=== PATIENT | female | born 1995 | race Caucasian/White ===

== ENCOUNTER 2021-07-26 12:19 | Emergency (ER) | payer BC ==
[~2021-07-26] VITALS: Ht 167.6 cm; Wt 75.0 kg
[2021-07-26 12:35] VITALS: BP 116/66
[2021-07-26] MEDS ORDERED: FLUC200T PO (12:59)
[2021-07-26] MEDS ORDERED: CIPR-202 PO (12:59)
[2021-07-26 13:02] LABS: URINE HCG NEGATIVE (NEG)
[2021-07-26 13:22] LABS: CLARITY,URINE CLOUDY (Clear); COLOR,URINE YELLOW (Yellow); GLUCOSE, URINE NEGATIVE (Neg); KETONES,URINE NEGATIVE (Neg); LEUKOCYTE ESTERASE ,URINE NEGATIVE (Neg); NITRITES, URINE NEGATIVE (Neg); OCCULT BLOOD,URINE SMALL (Neg); PH,URINE 7.5 (4.8-8.0); PROTEIN,URINE NEGATIVE (Neg); UROBILINOGEN,URINE 0.2 E.U/dL (0.2-1.0)
[2021-07-26 13:23] LABS: UA COLLECTION TYPE CLN CATCH MIDSTREAM
[2021-07-26 13:28] LABS: MUCUS STRANDS MANY /LPF (Neg); SQUAMOUS EPITHELIAL CELL,UR MANY /LPF (FEW)
[2021-07-26 13:30] LABS: BACTERIA,URINE 2+ /HPF (Neg); WBC,URINE 0-4 /HPF (0-4)
[2021-07-26 13:31] LABS: YEAST MODERATE /HPF (NEGATIVE)
== END 2021-07-26 13:11 | disposition home or self-care (01) ==
LOC: EEVIPCON 12:20 → ER 12:20
DX: H66.93 Otitis media, unspecified, bilateral (principal); R30.0 Dysuria; Z79.2 Long term (current) use of antibiotics
CPT/HCPCS: 81001; 81025; 99283

== ENCOUNTER 2021-08-16 09:32 | Emergency (ER) | payer BC ==
[~2021-08-16] VITALS: Ht 167.6 cm; Wt 75.0 kg
[~2021-08-16 09:32] MED LIST: CIPR-202 PO; FLUC200T PO
[2021-08-16 09:41] VITALS: BP 138/90
--- NOTE | 2021-08-16 10:05 | NUR ---
I AGREE WITH ALL DOCUMENTATION INCLUDING ASSESSMENTS DONE BY MIS LO FOR PATIENT.
[2021-08-16] MEDS ORDERED: MUPI22OI30 TOP (11:27)
[2021-08-17] MEDS ORDERED: AMOX-117 PO (15:20)
== END 2021-08-16 11:40 | disposition home or self-care (01) ==
LOC: EEVIPCON 09:33 → ER 09:33
DX: T65.891A Toxic effect of other specified substances, accidental (unintentional), initial encounter (principal); T20.53XA Corrosion of first degree of chin, initial encounter; R22.0 Localized swelling, mass and lump, head; Z79.2 Long term (current) use of antibiotics; Z79.899 Other long term (current) drug therapy; Y93.89 Activity, other specified; Y92.89 Other specified places as the place of occurrence of the external cause; Y99.8 Other external cause status
CPT/HCPCS: 99283

== ENCOUNTER 2021-08-17 14:44 | Emergency (ER) | payer BC ==
[~2021-08-17] VITALS: Ht 167.6 cm; Wt 80.0 kg
[~2021-08-17 14:44] MED LIST changes: +MUPI22OI30 TOP
[2021-08-17 14:50] VITALS: BP 141/94
[2021-08-17] MEDS ORDERED: AMOX-117 PO (15:20)
== END 2021-08-17 15:45 | disposition home or self-care (01) ==
LOC: EEVIPCON 14:44 → ER 14:44
DX: L03.211 Cellulitis of face (principal); Z79.2 Long term (current) use of antibiotics; Z79.899 Other long term (current) drug therapy
CPT/HCPCS: 99283

== ENCOUNTER 2021-08-23 15:01 | Emergency (ER) | payer BC ==
[~2021-08-23] VITALS: Ht 167.6 cm; Wt 75.0 kg
[~2021-08-23 15:01] MED LIST changes: +AMOX-117 PO; -MUPI22OI30 TOP
[2021-08-23 15:04] VITALS: BP 150/64
[2021-08-23] MEDS ORDERED: METH4TAB3 PO (16:34)
[2021-08-23] MEDS ORDERED: FAMO20TA8 PO (16:34)
== END 2021-08-23 16:54 | disposition home or self-care (01) ==
LOC: ER 15:02 → EEVIPCON 15:02 → ER 16:54
DX: L03.211 Cellulitis of face (principal); Z79.2 Long term (current) use of antibiotics; Z79.899 Other long term (current) drug therapy
CPT/HCPCS: 99283

== ENCOUNTER 2021-12-12 23:50 | Emergency (ER) | payer BC ==
[~2021-12-12] VITALS: Ht 167.6 cm; Wt 75.0 kg
[~2021-12-12 23:50] MED LIST changes: -AMOX-117 PO; -CIPR-202 PO; +FAMO20TA8 PO; +METH4TAB3 PO
[2021-12-12 23:54] VITALS: BP 148/96
== END 2021-12-13 02:50 | disposition home or self-care (01) ==
LOC: ER 23:51
DX: H10.212 Acute toxic conjunctivitis, left eye (principal); Z79.899 Other long term (current) drug therapy
CPT/HCPCS: 99282

== ENCOUNTER 2022-01-16 14:25 | Emergency (ER) | payer BC ==
[~2022-01-16] VITALS: Ht 167.6 cm; Wt 73.8 kg
[2022-01-16 14:38] VITALS: BP 128/79
[2022-01-16] MEDS ORDERED: PRED10TA PO (15:58)
[2022-01-16] MEDS ORDERED: TRIA15CR61 TOP (15:58)
== END 2022-01-16 16:08 | disposition home or self-care (01) ==
LOC: ER 14:26 → EEVIPCON 14:26 → ER 16:08
DX: L30.1 Dyshidrosis [pompholyx] (principal); Z79.899 Other long term (current) drug therapy
CPT/HCPCS: 99283

== ENCOUNTER 2022-02-19 19:11 | Emergency (ER) | payer BC ==
[~2022-02-19 19:11] MED LIST changes: +PRED10TA PO
[2022-02-20] MEDS ORDERED: CEPH500C81 PO (11:24)
== END 2022-02-19 22:10 | disposition left against medical advice (07) ==
LOC: ER 19:12
DX: R10.9 Unspecified abdominal pain (principal); Z53.21 Procedure and treatment not carried out due to patient leaving prior to being seen by health care provider

== ENCOUNTER 2022-02-20 08:21 | Emergency (ER) | payer BC ==
[~2022-02-20] VITALS: Ht 167.6 cm; Wt 74.6 kg
[2022-02-20 09:11] VITALS: BP 140/94
[2022-02-20 09:49] LABS: URINE HCG NEGATIVE (NEG)
[2022-02-20 10:01] LABS: CLARITY,URINE SLIGHTLY CLOUDY (Clear); COLOR,URINE YELLOW (Yellow); GLUCOSE, URINE NEGATIVE (Neg); KETONES,URINE TRACE mg/dl (Neg); LEUKOCYTE ESTERASE ,URINE NEGATIVE (Neg); OCCULT BLOOD,URINE MODERATE (Neg); PROTEIN,URINE NEGATIVE (Neg); UROBILINOGEN,URINE 0.2 E.U/dL (0.2-1.0)
[2022-02-20 10:07] LABS: UA COLLECTION TYPE CLN CATCH MIDSTREAM
[2022-02-20 10:08] LABS: NITRITES, URINE NEGATIVE (Neg)
[2022-02-20 10:11] LABS: BACTERIA,URINE 2+ /HPF (Neg); MUCUS STRANDS MODERATE /LPF (Neg); SQUAMOUS EPITHELIAL CELL,UR MANY /LPF (FEW)
[2022-02-20 10:46] LABS: CLARITY,URINE SLIGHTLY CLOUDY (Clear); COLOR,URINE YELLOW (Yellow); GLUCOSE, URINE NEGATIVE (Neg); KETONES,URINE 15 mg/dl (Neg); LEUKOCYTE ESTERASE ,URINE NEGATIVE (Neg); OCCULT BLOOD,URINE LARGE (Neg); PROTEIN,URINE TRACE mg/dl (Neg); UROBILINOGEN,URINE 0.2 E.U/dL (0.2-1.0)
[2022-02-20 10:50] LABS: UA COLLECTION TYPE CLN CATCH MIDSTREAM
[2022-02-20 10:52] LABS: NITRITES, URINE NEGATIVE (Neg)
[2022-02-20 10:54] LABS: BACTERIA,URINE 3+ /HPF (Neg); MUCUS STRANDS MODERATE /LPF (Neg); SQUAMOUS EPITHELIAL CELL,UR MANY /LPF (FEW); WBC,URINE 20-30 /HPF (0-4)
[2022-02-20] MEDS ORDERED: CEPH500C81 PO (11:24)
[2022-02-20] MEDS ORDERED: cephalexin 500mg capsule PO ONE (11:25)
== END 2022-02-20 11:52 | disposition home or self-care (01) ==
LOC: ER 08:21
DX: N39.0 Urinary tract infection, site not specified (principal); Z79.899 Other long term (current) drug therapy
CPT/HCPCS: 81001; 81025; 99283

== ENCOUNTER 2022-05-27 09:42 | Emergency (ER) | payer BC ==
[~2022-05-27] VITALS: Ht 167.6 cm; Wt 70.0 kg
[2022-05-27 09:46] VITALS: BP 135/80
[2022-05-27] MEDS ORDERED: CefTRIAXone 1000mg IM Kit (w/lidocaine diluent) IM STA (10:41)
[2022-05-27] MEDS ORDERED: azithromycin 250mg tablet PO ONE (10:45)
[2022-05-27] MEDS ORDERED: CefTRIAXone 500MG IM Kit w/LIDOcaine IM ONE (10:50)
== END 2022-05-27 11:15 | disposition home or self-care (01) ==
LOC: EEVIPCON 09:43 → ER 09:43
DX: A63.8 Other specified predominantly sexually transmitted diseases (principal); F17.200 Nicotine dependence, unspecified, uncomplicated; Z79.899 Other long term (current) drug therapy
CPT/HCPCS: 36415; 87491; 87591; 96372; 99283; J0696